=== PATIENT | female | born 2000 | race African-American/Black ===

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

== ENCOUNTER 2020-05-27 22:52 | Emergency (ER) | payer MEDICAID ==
[~2020-05-27] VITALS: Ht 162.6 cm; Wt 60.0 kg
[2020-05-27 23:41] VITALS: BP 142/76
[2020-05-27] MEDS ORDERED: LIDOCAINE HCL 1% 20ML VIAL (Pyxis) INJ INFIL ONE (23:45)
[2020-05-27] MEDS ORDERED: CEFTRIAXONE SODIUM 250 MG/VIAL IM ONE (23:45)
[2020-05-27] MEDS ORDERED: AZITHROMYCIN 500 MG TABLET PO ONE (23:45)
== END 2020-05-28 01:40 | disposition home or self-care (01) ==
LOC: ER 22:52
DX: A64 Unspecified sexually transmitted disease (principal); F12.10 Cannabis abuse, uncomplicated
CPT/HCPCS: 87491; 87591; 96372; 99283; J0696; J3490

== ENCOUNTER 2020-08-18 22:00 | Emergency (ER) | payer MEDICAID ==
[~2020-08-18] VITALS: Ht 157.5 cm; Wt 46.0 kg
[2020-08-18 22:49] VITALS: BP 120/51
[2020-08-19 00:36] LABS: CLARITY URINE CLEAR (CLEAR); COLOR URINE YELLOW (YELLOW); KETONES URINE NEGATIVE (NEGATIVE); LEUKOCYTE ESTERASE URINE NEGATIVE (NEGATIVE); NITRITE URINE NEGATIVE (NEGATIVE); OCCULT BLOOD URINE NEGATIVE (NEGATIVE); PROTEIN URINE NEGATIVE (NEGATIVE); SPECIFIC GRAVITY URINE 1.016 (1.005-1.030); UROBILINOGEN URINE 0.2 E.U./dL (0.2-1.0)
[2020-08-19] MEDS ORDERED: LIDOCAINE HCL 1% 20ML VIAL (Pyxis) INJ INFIL ONE (01:15)
[2020-08-19] MEDS ORDERED: CEFTRIAXONE SODIUM 500 MG/VIAL IM ONE (01:15)
[2020-08-19] MEDS ORDERED: AZITHROMYCIN 500 MG TABLET PO ONE (01:15)
[2020-08-21 14:10] LABS: NEISSERIA GONORRHOEAE NAA Negative (Negative)
== END 2020-08-19 01:47 | disposition home or self-care (01) ==
LOC: ER 22:00
DX: Z20.2 Contact with and (suspected) exposure to infections with a predominantly sexual mode of transmission (principal)
CPT/HCPCS: 81003; 81025; 87491; 87591; 96372; 99283; J0696; J3490